=== PATIENT | male | born 1940 | race Caucasian/White ===

== ENCOUNTER 2018-04-06 18:05 | Inpatient (IN) | payer MEDICARE, OTHER ==
[~2018-04-06] VITALS: Ht 165.1 cm; Wt 90.8 kg
[~2018-04-06 18:05] MED LIST: ASCO500C16 PO; FERR325T24 PO; FOLI1TAB16 PO; LACT10SO7 PO; MULT-31 PO; POTA20TA83 PO; ZINC50TA65 PO
[2018-04-06] MEDS ORDERED: SPIR25TA4 PO (18:44)
[2018-04-06] MEDS ORDERED: FURO-152 PO (18:44)
[2018-04-06] MEDS ORDERED: TERA2CAP4 PO (18:44)
[2018-04-06 19:26] LABS: BASOPHILS % (AUTO) 0.5 % (0.0-2.0); EOSINOPHILS # (AUTO) 0.2 K/uL (0.0-0.7); EOSINOPHILS % (AUTO) 4.1 % (0.0-7.0); HEMATOCRIT 45.6 % (36.7-47.1); HEMOGLOBIN 15.6 g/dL (12.5-16.3); LYMPHOCYTES # (AUTO) 0.7 K/uL (20.0-40.0); LYMPHOCYTES % (AUTO) 11.6 % (20.5-51.5); MEAN CORPUSCULAR HEMOGLOBIN 36.3 uug (23.8-33.4); MEAN CORPUSCULAR HGB CONC 34 g/dL (32.5-36.3); MEAN CORPUSCULAR VOLUME 105.9 fL (73.0-96.2); MONOCYTES # (AUTO) 0.9 K/uL (2.0-10.0); MONOCYTES % (AUTO) 15.8 % (0.0-11.0); NEUTROPHILS # (AUTO) 4.1 K/uL (1.8-8.9); PLATELET COUNT (AUTO) 89 K/uL (152-348)
--- NOTE | 2018-04-06 19:30 | NUR ---
Pt provided urine sample, sent to lab.
[2018-04-06 19:40] LABS: CARBON DIOXIDE 26 mmol/L (21-32); CHLORIDE 105 mmol/L (98-107); CREATININE 1.2 mg/dL (0.6-1.3); GLUCOSE 126 mg/dL (74-106); POTASSIUM 3.7 mmol/L (3.5-5.1); UREA NITROGEN, BLOOD 16 mg/dL (7-18)
[2018-04-06 19:49] LABS: *BILIRUBIN,URIN NEGATIVE (NEGATIVE); *BLOOD, URINE NEGATIVE (NEGATIVE); *CLARITY,URINE CLEAR (CLEAR); *COLOR,URINE YELLOW (YELLOW); *KETONES,URINE NEGATIVE (NEGATIVE); *PROTEIN,URINE NEGATIVE (NEGATIVE); LEUKOCYTE ESTERASE ,URINE NEGATIVE (NEGATIVE); NITRITE, URINE NEGATIVE (NEGATIVE); PH,URINE 5.5 (5.0-8.0); UGLUCOSE NEGATIVE (NEGATIVE)
[2018-04-06 19:52] LABS: ALANINE AMINOTRANSFERASE 32 U/L (16-63); ALKALINE PHOSPHATASE 125 U/L (50-136); ASPARTATE AMINOTRANSFERASE 36 U/L (15-37); BILIRUBIN,DIRECT 0.5 mg/dL (0.0-0.2); BILIRUBIN,TOTAL 1.4 mg/dL (0.2-1.0); TOTAL PROTEIN, SERUM 7.4 g/dL (6.4-8.2)
[2018-04-06 20:05] LABS: SQUAMOUS EPITHELIAL CELL,UR FEW /HPF (NONE SEEN); WBC,URINE 0-3 /HPF (0-3)
[2018-04-06 20:52] LABS: BAND % (MANUAL) 4 % (0-10); EOSINOPHILS % (MANUAL) 2 % (0-8); LYMPHOCYTES % (MANUAL) 12 % (20-40); MONOCYTES % (MANUAL) 15 % (2-10); NEUTROPHILS % (MANUAL) 67 % (42-75)
--- NOTE | 2018-04-06 22:14 | NUR ---
Report given to Leila SUNSHINE Tele.
[2018-04-06 23:00] VITALS: BP 115/67
--- NOTE | 2018-04-06 23:05 | NUR ---
RECEIVED [facility] PATIENT FROM ER VIA W/C ACCOMPANIED BY THE SON. PATIENT ALERT AWAKE AND ORIENTED X 3. . HE IS RESTLESS AND GETTING UPSET FOR NOT LETTING HIM SMOKING. USED THE INTERVENTION OF DISTRACTION AND PATIENT OBEYED COMMANDS WITH HESITANCE. ALL NEEDS MET . WILL CONTUE TO MONITOR. SR WITH [facility] AND [facility] ON THE TELEMONITORING
[2018-04-06] MEDS ORDERED: LORAZEPAM 2 MG/1 ML VIAL IV PRN (23:15)
[2018-04-06] MEDS ORDERED: MORPHINE SULFATE 2 MG/1 ML DISP.SYRIN IV PRN (23:15)
[2018-04-07] VITALS: BP 121/62
[2018-04-07 04:00] VITALS: BP 121/61
--- NOTE | 2018-04-07 06:40 | NUR ---
PATIENT HAS ORDER FOR CT OF ABD AND PELVIS WITH CONTRAST. INFORMED THE PATIENT ABOUT THE CT SCAN.AND CONSENT SIGNED
[2018-04-07 06:51] LABS: BASOPHILS % (AUTO) 0.7 % (0.0-2.0); EOSINOPHILS # (AUTO) 0.3 K/uL (0.0-0.7); EOSINOPHILS % (AUTO) 5.1 % (0.0-7.0); HEMATOCRIT 43.9 % (36.7-47.1); HEMOGLOBIN 15.1 g/dL (12.5-16.3); LYMPHOCYTES # (AUTO) 0.9 K/uL (20.0-40.0); MEAN CORPUSCULAR HEMOGLOBIN 36.7 uug (23.8-33.4); MEAN CORPUSCULAR HGB CONC 34 g/dL (32.5-36.3); MEAN CORPUSCULAR VOLUME 106.7 fL (73.0-96.2); MONOCYTES # (AUTO) 0.8 K/uL (2.0-10.0); MONOCYTES % (AUTO) 14.2 % (0.0-11.0); NEUTROPHILS # (AUTO) 3.9 K/uL (1.8-8.9); PLATELET COUNT (AUTO) 84 K/uL (152-348); RED BLOOD CELL COUNT(AUTO) 4.12 MIL/uL (4.06-5.63)
[2018-04-07 07:15] LABS: ALANINE AMINOTRANSFERASE 29 U/L (16-63); ALKALINE PHOSPHATASE 102 U/L (50-136); ASPARTATE AMINOTRANSFERASE 38 U/L (15-37); BILIRUBIN,TOTAL 1.8 mg/dL (0.2-1.0); CARBON DIOXIDE 26 mmol/L (21-32); CHLORIDE 107 mmol/L (98-107); CHOLESTEROL 128 mg/dL (<200); CREATININE 1.1 mg/dL (0.6-1.3); GLUCOSE 118 mg/dL (74-106); HDL CHOLESTEROL 49 mg/dL (40-60); MAGNESIUM 1.8 mg/dL (1.8-2.4); PHOSPHOROUS 3.2 mg/dL (2.5-4.9); POTASSIUM 3.6 mmol/L (3.5-5.1); THYROID STIMULATING HORMONE 3.443 mIU/mL (0.358-3.740); TOTAL PROTEIN, SERUM 6.7 g/dL (6.4-8.2); TRIGLYCERIDES 42 MG/DL (30-150); UREA NITROGEN, BLOOD 15 mg/dL (7-18)
[2018-04-07] MEDS ORDERED: BARIUM SULFATE 450 ML ORAL.SUSP ONE (07:54)
[2018-04-07] MEDS ORDERED: IV NORMAL SALINE 100 ML ONE (07:54)
[2018-04-07] MEDS ORDERED: SWABABLE VALVE TRANSFER SET EA MC ONE (07:54)
[2018-04-07] MEDS ORDERED: IOHEXOL 300MG/ML 100 ML INFUS..BTL ONE (07:54)
--- NOTE | 2018-04-07 08:00 | NUR ---
PT WILL HAVE A CT WITH CONTRAST TODAY AT APPROXIMATELY 1000. PT STARTED ON ORAL PREP BARIUM SULFATE , TWO BOTTLES. PT INSTRUCTED TO DRINK SLOWLY. IS IS AGREEABLE AND UNDERSTANDS DIRECTIONS. CONTINUE TO MONITOR.
[2018-04-07] MEDS: FAMOTIDINE 20 MG TABLET PO SCH ×2 (08:34→08:40)
[2018-04-07] MEDS: ASPIRIN EC 81 MG TABLET.DR PO SCH ×2 (08:34→08:40)
--- NOTE | 2018-04-07 08:40 | NUR ---
PT REFUSED ASPIRIN AND PEPCID STATING, " I DON'T NEED ANY OF THAT" I AM FINE!!
[2018-04-07] MEDS ORDERED: MORPHINE SULFATE 4 MG/1 ML DISP.SYRIN IV PRN (09:00)
[2018-04-07 09:33] LABS: EOSINOPHILS % (MANUAL) 5 % (0-8); LYMPHOCYTES % (MANUAL) 15 % (20-40); MONOCYTES % (MANUAL) 15 % (2-10); NEUTROPHILS % (MANUAL) 65 % (42-75)
[2018-04-07 11:50] VITALS: BP 117/62
[2018-04-07 16:20] VITALS: BP 101/65
--- NOTE | 2018-04-07 18:49 | NUR ---
PT IS AGITATED AND HYPERVERBAL, REFUSING MEDICATIONS, AOX3, NO SIGNS OF DISTRESS NOTED. CONTINUE TO MONITOR PT.
[2018-04-07 19:00] VITALS: BP 123/65
--- NOTE | 2018-04-07 19:30 | NUR ---
PT IN ROOM ALERT AWAKE ORIENTED IN NO ACUTE DISTRESS. AMBULATES VIA W/C. PT NEEDS FREQUENT REMINDERS REGARDING PLAN OF CARE. PT STATES 'I'M OK' WITH PERIODS OF NONCOMPLIANCE. PT DOWNGRADED TO MEDSURG AT THIS TIME. DENIES ANY CHEST PAIN OR SOB. V/S ARE WNL. WILL CONTINUE TO MONITOR. CALL LIGHT WITHIN REACH.
[2018-04-07] MEDS: TERAZOSIN 2 MG CAPSULE PO SCH (20:31)
--- NOTE | 2018-04-07 21:32 | NUR ---
lab results reported preliminary blood culture Gram positive coccie with clusters seen on gram stain. Dr Schroeder made aware. Spoke with Janet from lab. Noted and carried out.
[2018-04-07] MEDS ORDERED: VANCOMYCIN IV 1 G in PREMIXED 0 EACH IV ONE (22:30)
--- NOTE | 2018-04-07 22:57 | NUR ---
DR ROQUE AWARE OF PT REFUSING VANCOMYCIN TONIGHT. PT STATED "I DON'T WANT IT, I'M GOING HOME TOMORROW." AWAITING PSYCH CONSULT FOR TOMORROW PER MHU. WILL CONTINUE TO MONITOR. NOTED AND CARRIED OUT.
[2018-04-08 04:00] VITALS: BP 118/64
--- NOTE | 2018-04-08 06:07 | NUR ---
PT IN ROOM ALERT AWAKE IN NO DISTRESS. PT NON COMPLIANT AND STATES HE DOES NOT WANT LABS DRAWN THIS AM. REMINDED PT SAFETY MEASURES AND TO REQUEST FOR ASSISTANCE WHEN NEEDED. PT OFFERED TO ASSIST WITH HYGIENE. V/S ARE WNL. W/C AT BEDSIDE. CALL LIGHT PLACED WITHIN REACH. DENIES ANY PAIN OR SOB. WILL CONTINUE TO MONITOR.
--- NOTE | 2018-04-08 07:45 | NUR ---
RECEIVED PATIENT IN BED ALL COVERED UP OPENS EYES WHEN NAME IS CALLED BUT STATED TO LEAVE HIM ALONE BECAUSE HE NEEDED TO SLEEP MORE THERE WAS NO SHORTNESS OF BREATH OR S/S OF PAIN FACIAL GRIMACING OR PAIN AT THIS TIME WILL CONTINUE TO OBSERVE.
[2018-04-08] MEDS: ASPIRIN EC 81 MG TABLET.DR PO SCH (08:29)
--- NOTE | 2018-04-08 08:29 | NUR ---
PATIENT WAS BROUGHT BACK TO THE SECOND FLOOR BY THE GUEST RELATION OFFICER HE APPARENTLY PLACED HIMSELF ON THE W/CHAIR AND WAS SITTING IN THE LOBBY AT THIS TIME HE IS CONFUSED AND UNAWARE OF WHY HE WAS DOWN STAIRS HE IS WET FROM URINE AND UNCOOPERATIVE WITH THE NURSE TO CHANGE AND BATHE HIM.TOOK QUITE SOME TIME TO CONVINCE HIM THAT HE NEEDS A BATH AND CHANGING.PATIENT INSTRUCTED THAT HE WAS NOT ALLOWED TO GO DOWN STAIRS UNASSISTED AND HE EXPRESSED UNDERSTANDING AND WILL CONTINUE TO OBSERVE PATIENT.PATIENT NEEDS A PSYCH EVAL TODAY.
[2018-04-08] MEDS: FAMOTIDINE 20 MG TABLET PO SCH (08:35)
[2018-04-08 11:50] VITALS: BP 103/56
--- NOTE | 2018-04-08 12:30 | NUR ---
PATIENT SEEN AND EXAMINED BY DR FRANCIS WITH NEW ORDERS AND NOTED.
[2018-04-08] MEDS: risperiDONE 0.25 MG TABLET PO SCH ×2 (12:43→16:23)
[2018-04-08 15:18] VITALS: BP 109/54
--- NOTE | 2018-04-08 18:00 | NUR ---
IN AND OUT OF THE W/CHAIR PROPELLING SELF REMAINS CONFUSED BUT COMPLIANT WITH HIS ORAL MEDICATIONS AT THIS TIME.REMAIN INCONTINENT OF BLADDER WITH [employer] MADE COMFORTABLE AND WILL CONTINUE TO OBSERVE.
[2018-04-08 19:00] VITALS: BP 105/50
--- NOTE | 2018-04-08 19:30 | NUR ---
PT IN ROOM ALERT AWAKE SITTING IN WHEELCHAIR IN NO ACUTE DISTRESS. REMINDED PT TO REMAIN ON THE FLOOR AND AVOID WANDERING. PT NEEDS FREQUENT REMINDERS REGARDING PLAN OF CARE. WILL CONTINUE TO MONITOR. PT OFFERED TO HAVE ANOTHER ROOM D/T MALFUNCTION OF CALL LIGHT. PT STATED "I'M LEAVING TOMORROW ANYWAYS".
[2018-04-08] MEDS: TERAZOSIN 2 MG CAPSULE PO SCH (20:05)
--- NOTE | 2018-04-08 21:37 | NUR ---
PT REMOVED IV SITE TO LEFT AC. REFUSES TO HAVE ANOTHER ONE. DR ROQUE IS AWARE.
[2018-04-09 04:00] VITALS: BP 118/59
--- NOTE | 2018-04-09 05:36 | NUR ---
PT ABLE TO SLEEP WITHOUT DIFFICULTY. NO EPISODES OF AGITATION OR INCREASED CONFUSION. PT REMINDED TO ASK FOR ASSTANCE REGARDING HELP WITH BATHROOM PRIVILEGES FOR HYGIENE PURPOSES. V/S ARE WNL. WILL CONTINUE TO MONITOR. DENIES ANY PAIN OR SOB.
--- NOTE | 2018-04-09 08:30 | NUR ---
RECEIVED PATIENT IN BED AWAKE AND ALERT TO SELF COOPERATIVE AND COMPLIANT WITH MEDICATIONS INCONTINENT CARE GIVEN SITTING UP ON THE W/CHAIR AND FEEDING SELF AT THIS TIME WILL CONTINUE TO OBSERVE.
[2018-04-09] MEDS: FAMOTIDINE 20 MG TABLET PO SCH (08:56)
[2018-04-09] MEDS: ASPIRIN EC 81 MG TABLET.DR PO SCH (08:56)
[2018-04-09] MEDS: risperiDONE 0.25 MG TABLET PO SCH ×2 (08:56→16:45)
[2018-04-09 12:00] VITALS: BP 100/47
--- NOTE | 2018-04-09 13:38 | NUR ---
THE PLAN IS FOR PATIENT TO BE SEEN BY CRISIS TEAM TODAY FOR EVALUATION.PER THE DISCHARGE MANAGER ARCHITECTURE PATIENTS SON JEANNE IS AWARE AND AGREES WITH THIS PLAN.
[2018-04-09 15:51] VITALS: BP 120/59
--- NOTE | 2018-04-09 16:47 | NUR ---
NEW ORDER TO DISCHARGE PATIENT TO MENTAL HEALTH STATUS NOTED AT THIS TIME AWAITING FOR THE CRISIS TEAM TO EVALUATE PATIENT PRIOR TO DISCHARGE
--- NOTE | 2018-04-09 17:32 | NUR ---
SITTING UP IN THE CHAIR COMPLIANT WITH MEDICATIONS AT THIS TIME D/C PLANNING WILL BE CONVERTED TO PSYCH STATUS AFTER BEING SEEN BY THE CRISIS TEAM PER DR ROQUE.
[2018-04-09] MEDS ORDERED: RISP0.253 PO ×2 (17:38→20:21)
[2018-04-09] MEDS ORDERED: FAMO20TA8 PO ×2 (17:38→20:21)
[2018-04-09] MEDS ORDERED: ASPI-618 PO (17:38)
--- NOTE | 2018-04-09 18:22 | NUR ---
PATIENT SEEN AND EXAMINED BY DR JETER AWARE OF THE MOST RECENT TROPONIN LEVEL OF 0.075 STATED ITS OKAY PATIENT IS CLEARED FOR MENTAL HEALTH STATUS AT THIS TIME
--- NOTE | 2018-04-09 18:45 | NUR ---
PATIENT IS PLACED ON HOLD FOR 72 HOURS AND WILL BE CONVERTED TO MENTAL HEALTH STATUS
--- NOTE | 2018-04-09 18:47 | NUR ---
PATIENT IS UNABLE TO SIGN OR UNDERSTAND THE DISCHARGE PAPER WORK AT THIS TIME.BUT INSTRUCTIONS WAS GIVEN AND PROTOCOL FOLLOWED PER THE GRAVURE PRESS SET UP OPERATOR AND THE DIGITAL ACCOUNT DIRECTOR PATIENTS VESNA ANGEL IS AWARE OF THE DISCHARGE FROM THE MEDICAL TO THE MHU STATUS.
[2018-04-09] MEDS ORDERED: ASPI81TA31 PO (20:21)
== END 2018-04-09 18:45 | DRG 441 ==
LOC: ER 18:07 → TELE 22:26 → MED 04-07 19:07
PROVIDERS: ADMIT Internal Medicine; ATTEND Internal Medicine
DX: K72.90 Hepatic failure, unspecified without coma (principal); I21.4 Non-ST elevation (NSTEMI) myocardial infarction; D68.59 Other primary thrombophilia; D68.4 Acquired coagulation factor deficiency; K70.31 Alcoholic cirrhosis of liver with ascites; F10.20 Alcohol dependence, uncomplicated; Y90.9 Presence of alcohol in blood, level not specified; N40.1 Benign prostatic hyperplasia with lower urinary tract symptoms; N39.498 Other specified urinary incontinence; H40.9 Unspecified glaucoma; I27.20 Pulmonary hypertension, unspecified; Z91.14 Patient's other noncompliance with medication regimen; I11.0 Hypertensive heart disease with heart failure; I50.9 Heart failure, unspecified; J44.9 Chronic obstructive pulmonary disease, unspecified; D69.6 Thrombocytopenia, unspecified; Z99.3 Dependence on wheelchair; Z98.42 Cataract extraction status, left eye; Z98.41 Cataract extraction status, right eye; Z79.899 Other long term (current) drug therapy; Z91.010 Allergy to peanuts; K80.20 Calculus of gallbladder without cholecystitis without obstruction; F29 Unspecified psychosis not due to a substance or known physiological condition
CPT/HCPCS: 36415; 70030-TC; 71045; 83605; 83735; 84100; 84153; 84443; 85025; 85730; 87040; 87086; 93005; A4663; J3370; J3490; Q9951; Q9967

== ENCOUNTER 2018-04-09 19:40 | Inpatient (IN) | payer MEDICARE, OTHER ==
[~2018-04-09] VITALS: Ht 165.1 cm; Wt 90.7 kg
[~2018-04-09 19:40] MED LIST changes: -ASCO500C16 PO; +ASPI-618 PO; +FAMO20TA8 PO; -FERR325T24 PO; +FURO-152 PO; -LACT10SO7 PO; -POTA20TA83 PO; +RISP0.253 PO; +SPIR25TA4 PO; +TERA2CAP4 PO; -ZINC50TA65 PO
[2018-04-09 20:00] VITALS: BP 100/55
--- NOTE | 2018-04-09 20:00 | NUR ---
RECEIVED PATIENT MARINA-PSYCH OVERFLOW. PATIENT IS A/O X2. CONFUSED AND VERY FORGETFUL. NEEDS FREQUENT REDIRECTION AND EASILY AGITATED WITH STAFF. PATIENT IS UPSET BECAUSE THERE IS A 1:1 SITTER AT BEDSIDE AND PATIENT DOES NOT WANT ANYONE AROUND. PATIENT EXPLAINED THE NEED AND PROTOCOL FOR SITTER. VERBALIZES UNDERSTANDING, BUT EASILY FORGETS AND THEN NEEDS REINFORCEMENT. PATIENT DENIES PAIN OR DISCOMFORT. NO FACIAL GRIMACE NOTED. VSS. 1:1 SITTER AT BEDSIDE FOR SAFETY. PATIENT IS AT BEDSIDE SITTING IN W/C. UNABLE TO AMBULATE. W/C BOUND ONLY. PROVIDED SAFE AND THERAPEUTIC ENVIRONMENT. CALL LIGHT IN REACH. ALL NEEDS ATTENDED. WILL CONTINUE TO MONITOR AND ASSESS.
[2018-04-09] MEDS ORDERED: FAMO20TA8 PO (20:21)
[2018-04-09] MEDS ORDERED: ASPI81TA31 PO (20:21)
[2018-04-09] MEDS ORDERED: RISP0.253 PO (20:21)
[2018-04-09] MEDS ORDERED: MAG HYDROX/AL HYDROX/SIMETH 30 ML LIQUID UDC PO PRN (20:45)
[2018-04-09] MEDS ORDERED: CLONAZEPAM 0.5 MG TABLET PO PRN (20:45)
[2018-04-09] MEDS ORDERED: MAGNESIUM HYDROXIDE 30 ML LIQUID UDC PO PRN (20:45)
[2018-04-09] MEDS ORDERED: TEMAZEPAM 7.5 MG CAPSULE PO PRN (20:45)
[2018-04-09] MEDS ORDERED: ACETAMINOPHEN 325 MG TABLET PO PRN (20:45)
--- NOTE | 2018-04-09 21:00 | NUR ---
SKIN ASSESSMENT DONE. SKIN INTACT. PATIENT HAS RED, DRY AND VERY HARD BLACK SKIN NOTED TO BILATERAL LOWER EXTREMITIES. INFORMED PATIENT THAT PICTURES NEEDED TO BE TAKEN PROTOCOL. PATIENT BECAME EASILY AGITATED AND REFUSING FOR PICTURES TO BE TAKEN. NOTIFIED MENTAL HEALTH HUMAN SERVICES INSTRUCTOR. WILL CONTINUE TO MONITOR AND ASSESS.
--- NOTE | 2018-04-09 21:30 | NUR ---
PATIENT REFUSED FOR MRSA SWAB TO BE DONE. TIN DIPPER NOTIFIED.
[2018-04-09] MEDS ORDERED: risperiDONE 0.25 MG TABLET PO SCH (22:15)
--- NOTE | 2018-04-09 23:00 | NUR ---
PATIENT ASLEEP IN BED. SITTER AT BEDSIDE. BED ALARM ON. ALL NEEDS ATTENDED. WILL CONTINUE TO MONITOR AND ASSESS.
--- NOTE | 2018-04-10 06:09 | NUR ---
PATIENT ASLEEP IN BED WITH SITTER AT BEDSIDE. SLEPT WELL THROUGHOUT THE NIGHT. SAFETY MEASURES MAINTAINED. BED ALARM ON. ALL NEEDS ATTENDED. WILL CONTINUE TO MONITOR.
--- NOTE | 2018-04-10 06:35 | NUR ---
PATIENT SLEPT 6 HOURS AND 15 MINUTES. ALL NEEDS ATTENDED.
[2018-04-10 08:00] VITALS: BP 115/64
[2018-04-10] MEDS: FOLIC ACID 1 MG TABLET PO SCH (08:15)
[2018-04-10] MEDS: FAMOTIDINE 20 MG TABLET PO SCH (08:15)
[2018-04-10] MEDS: SPIRONOLACTONE 25 MG TABLET PO SCH (08:15)
[2018-04-10] MEDS: MULTIVIT, IRON, MIN NO. 8, FA TABLET PO SCH (08:15)
--- NOTE | 2018-04-10 08:15 | NUR ---
PATIENT ASSISTED UP ON THE CHAIR FOR HIS BREAKFAST FED SELF WITH GOOD APPETITE MADE COMFORTABLE REMAIN ON ONE ON ONE OBSERVATION FOR SAFETY MADE COMFORTABLE AND WILL CONTINUE TO OBSERVE.
[2018-04-10] MEDS: FUROSEMIDE 20 MG TABLET PO SCH (08:16)
[2018-04-10] MEDS: ASPIRIN EC 81 MG TABLET.DR PO SCH (08:16)
[2018-04-10] MEDS ORDERED: FAMOTIDINE 20 MG TABLET PO SCH (09:00)
[2018-04-10] MEDS ORDERED: ASPIRIN 81 MG TAB.CHEW PO SCH (09:00)
[2018-04-10] MEDS ORDERED: risperiDONE 0.25 MG TABLET PO SCH (09:00)
[2018-04-10 11:55] VITALS: BP 120/67
[2018-04-10 15:36] VITALS: BP 114/62
--- NOTE | 2018-04-10 17:09 | NUR ---
PATIENT TAKEN TO MENTAL HEALTH BY W/CHAIR AND SHOWERED AND BACK TO HIS ROOM IN SATISFACTORY CONDITION. COMPLIANT AT THIS TIME.
--- NOTE | 2018-04-10 19:06 | NUR ---
UP ON THE W/CHAIR CALM AND COOPERATIVE AT THIS TIME.
[2018-04-10 19:20] VITALS: BP 112/53
--- NOTE | 2018-04-10 19:20 | NUR ---
RECEIVED PT SITTING IN THE WHEELCHAIR. ALERT TO SELF ONLY. WITH CONFUSION AND DISORIENTATION. NO BEHAVIORAL ISSUES NOTED AT THIS TIME. SITTER ON SITE. IN NO ACUTE DISTRESS. NO SIGNS AND SYMPTOMS OF PAIN OR SOB. SAFETY MEASURE INITIATED.
[2018-04-10] MEDS: TERAZOSIN 2 MG CAPSULE PO SCH (20:14)
--- NOTE | 2018-04-11 05:56 | NUR ---
ALERT TO SELF ONLY. WITH CONFUSION AND DISORIENTATION. NO INAPPROPRIATE OR UNSAFE BEHAVIOR NOTED. SITTER REMAINS ON SITE. IN NO ACUTE DISTRESS. NO SIGNS AND SYMPTOMS OF PAIN OR SOB. SAFETY MEASURE MAINTAINED CALL MOSER WITHIN REACH.
[2018-04-11 06:04] VITALS: BP 103/54
[2018-04-11 08:00] VITALS: BP 92/46
[2018-04-11] MEDS: MULTIVIT, IRON, MIN NO. 8, FA TABLET PO SCH (09:06)
[2018-04-11] MEDS: FAMOTIDINE 20 MG TABLET PO SCH (09:06)
[2018-04-11] MEDS: FOLIC ACID 1 MG TABLET PO SCH (09:06)
[2018-04-11] MEDS: ASPIRIN EC 81 MG TABLET.DR PO SCH (09:06)
--- NOTE | 2018-04-11 10:00 | NUR ---
Pt's BP 98/54 HR 94. Pt with due meds of Aldactone 50mg QD and Lasix 20mg QD for hx of Alcoholic Liver Cirrhosis, Ascites, BPH. Followed up with Dr. Hilliard if medications needs to be held secondary to low BP. Per Dr. Hilliard, administer medications as ordered.
[2018-04-11] MEDS: FUROSEMIDE 20 MG TABLET PO SCH (10:06)
[2018-04-11] MEDS: SPIRONOLACTONE 25 MG TABLET PO SCH (10:06)
[2018-04-11 13:10] VITALS: BP 101/55
--- NOTE | 2018-04-11 16:15 | NUR ---
Pt will be transferred to MHU Room 139A. Full SBAR report given to JONG Carl. Pt transferred via w/c accompanied by x1 staff to MHU with all his belongings and medical records. Verbalized understanding. Son aware of transfer. Pt was up in w/c most of the day watching tv, interacting with staff and other pts. Showered and performed self-care. Compliant with due medications. Endorsed to MHU.
--- NOTE | 2018-04-11 17:58 | NUR ---
GPS.RN- contacted Dr Siegel, no new orders for Psych meds, consent for Risperdal today in chart. orders received for Risperdal 0.25mg by mouth BID, orders read back, consent verified faxed to Pharmacy
[2018-04-11] MEDS: risperiDONE 0.25 MG TABLET PO SCH (18:33)
[2018-04-11 20:11] VITALS: BP 120/58
[2018-04-11] MEDS: TERAZOSIN 2 MG CAPSULE PO SCH (21:22)
[2018-04-11] MEDS ORDERED: TEMAZEPAM 7.5 MG CAPSULE ONE (23:46)
[2018-04-12 07:54] VITALS: BP 99/66
--- NOTE | 2018-04-12 08:18 | NUR ---
UR Note: On 04/11 KIARA spoke with Xu at [facility] [[phone]] regarding patient's case. Xu stated a [id number] is needed for authorization. Per Xu, a case specialist from [facility] will be calling KIARA within 48hours to schedule [id number]. KIARA will continue to follow up.
[2018-04-12] MEDS: FAMOTIDINE 20 MG TABLET PO SCH (09:04)
[2018-04-12] MEDS: FOLIC ACID 1 MG TABLET PO SCH (09:04)
[2018-04-12] MEDS: risperiDONE 0.25 MG TABLET PO SCH (09:04)
[2018-04-12] MEDS: FUROSEMIDE 20 MG TABLET PO SCH (09:04)
[2018-04-12] MEDS: ASPIRIN EC 81 MG TABLET.DR PO SCH (09:04)
[2018-04-12] MEDS: MULTIVIT, IRON, MIN NO. 8, FA TABLET PO SCH (09:04)
[2018-04-12] MEDS: SPIRONOLACTONE 25 MG TABLET PO SCH (09:05)
--- NOTE | 2018-04-12 10:43 | NUR ---
DC Note: Patient will be discharged to [facility] [[address] [place] [address]; ] via private transportation. KIARA spoke with Joana at [facility] to confirm discharge. Patient's Maude [[phone]] stated she will pickling operator patient between 2pm and 3pm. Patient will follow up with Dr. Lonnie Schroeder (Screening Tech) at the facility. Patient was provided referrals for outpatient psychiatrists including: Dr. Sigeel [[phone]], Dr. Joy [[phone]], and Dr. So [[phone]]. Patient was provided with additional outpatient mental health resources to [facility] , [facility] , and the National Suicide Prevention Lifeline . Patient was provided a brief substance abuse intervention for alcohol use and provided substance abuse referrals for [facility] [ ], [facility] [ ], and [facility] [ ]. Patient was provided smoking cessation referrals for [employer] and [employer] [phone].
--- NOTE | 2018-04-12 13:42 | NUR ---
[address] [facility] spoke with Judith the mediation nurse informed regarding patient will be discharged back to their faciltiy today. Patient will be picked up by and son via private car. Also, informed regarding medications to continue upon discharged from hospital.[id number] Patient picked up by , Maude and sonand transported patient to facility in stable condition, denies SI/HI, no delusion/ no hallucination .
[2018-04-12] MEDS ORDERED: risperiDONE 0.25 MG TABLET PO SCH (17:00)
== END 2018-04-12 13:30 | DRG 885 ==
LOC: GPSOV 19:40 → UNDODISIN 04-11 16:20 → GPS 04-11 16:58
PROVIDERS: ADMIT Psychiatry & Neurology Psychiatry; ATTEND Nurse Practitioner Acute Care
DX: F29 Unspecified psychosis not due to a substance or known physiological condition (principal); K76.6 Portal hypertension; K70.31 Alcoholic cirrhosis of liver with ascites; F10.20 Alcohol dependence, uncomplicated; Y90.9 Presence of alcohol in blood, level not specified; N40.0 Benign prostatic hyperplasia without lower urinary tract symptoms; I27.20 Pulmonary hypertension, unspecified; Z98.49 Cataract extraction status, unspecified eye; F17.210 Nicotine dependence, cigarettes, uncomplicated
CPT/HCPCS: 36415

== ENCOUNTER 2018-08-16 17:00 | Inpatient (IN) | payer MEDICARE, OTHER ==
[~2018-08-16] VITALS: Ht 177.8 cm; Wt 88.9 kg
[2018-08-16] VITALS (9 sets, daily range): BP systolic 82–116; BP diastolic 43–57
[~2018-08-16 17:00] MED LIST changes: +ASPI81TA31 PO; -RISP0.253 PO; -SPIR25TA4 PO; +SPIR25TA6 PO
[2018-08-16] MEDS ORDERED: IV NORMAL SALINE 1000 ML BAG IV ONE ×2 (17:30→18:00)
[2018-08-16 17:39] LABS: BASOPHILS % (AUTO) 0.1 % (0.0-2.0); EOSINOPHILS % (AUTO) 0.1 % (0.0-7.0); HEMATOCRIT 38.5 % (36.7-47.1); HEMOGLOBIN 13.1 g/dL (12.5-16.3); LYMPHOCYTES # (AUTO) 0.1 K/uL (20.0-40.0); LYMPHOCYTES % (AUTO) 0.8 % (20.5-51.5); MEAN CORPUSCULAR HEMOGLOBIN 37.2 uug (23.8-33.4); MEAN CORPUSCULAR HGB CONC 34 g/dL (32.5-36.3); MEAN CORPUSCULAR VOLUME 109.5 fL (73.0-96.2); MONOCYTES # (AUTO) 0.4 K/uL (2.0-10.0); MONOCYTES % (AUTO) 2.1 % (0.0-11.0); NEUTROPHILS # (AUTO) 17.7 K/uL (1.8-8.9); NEUTROPHILS % (AUTO) 96.9 % (38.5-71.5); PLATELET COUNT (AUTO) 249 K/uL (152-348); RED BLOOD CELL COUNT(AUTO) 3.52 MIL/uL (4.06-5.63); WHITE BLOOD COUNT (AUTO) 18.3 K/uL (3.6-10.2)
[2018-08-16] MEDS ORDERED: MAGN400O6 PO (17:39)
[2018-08-16] MEDS ORDERED: ACET-2154 PO (17:39)
[2018-08-16] MEDS ORDERED: TAMS0.4C34 PO (17:39)
[2018-08-16 17:45] LABS: CARBON DIOXIDE 17 mmol/L (21-32); CHLORIDE 96 mmol/L (98-107); CREATININE 2.2 mg/dL (0.6-1.3); GLUCOSE 219 mg/dL (74-106); POTASSIUM 4.2 mmol/L (3.5-5.1); UREA NITROGEN, BLOOD 17 mg/dL (7-18)
[2018-08-16 17:51] LABS: ALANINE AMINOTRANSFERASE 24 U/L (16-63); ALKALINE PHOSPHATASE 129 U/L (50-136); ASPARTATE AMINOTRANSFERASE 44 U/L (15-37); BILIRUBIN,TOTAL 2.1 mg/dL (0.2-1.0); TOTAL PROTEIN, SERUM 6.8 g/dL (6.4-8.2)
[2018-08-16] MEDS ORDERED: PIPERACILLIN SODIUM/TAZOBACTAM 3.375 G in IV DEXTROSE 5% 50 ML IV ONE (18:00)
[2018-08-16] MEDS ORDERED: VANCOMYCIN IV 1,000 MG in IV DEXTROSE 5% 250 ML IV ONE (18:00)
[2018-08-16 18:06] LABS: NEUTROPHILS % (MANUAL) 72 % (42-75)
[2018-08-16] MEDS ORDERED: PIPERACILLIN SODIUM/TAZO 3.375 GM VIAL ONE (18:06)
[2018-08-16 18:07] LABS: BAND % (MANUAL) 25 % (0-10); LYMPHOCYTES % (MANUAL) 1 % (20-40); MONOCYTES % (MANUAL) 2 % (2-10)
[2018-08-16] MEDS ORDERED: VANCOMYCIN IV 200 ML ONE (18:39)
[2018-08-16] MEDS ORDERED: IV NORMAL SALINE 1000 ML BAG IV PRN (20:30)
[2018-08-16] MEDS ORDERED: DOSING BY PHARMACY-MD TO SPECIFY MED/ROUTE XX PRN (20:30)
[2018-08-16] MEDS: IV NS 1000 ML 1,000 ML IV PRN (23:07)
[2018-08-17] VITALS (31 sets, daily range): BP systolic 80–114; BP diastolic 42–64
[2018-08-17] MEDS: PIPERACILLIN/TAZOBACTAM/D5W 3.375 G in PREMIXED 1 EACH IV SCH ×3 (01:09→17:40)
[2018-08-17] MEDS: IV NORMAL SALINE 250 ML IV PRN ×2 (01:09→13:39)
[2018-08-17 05:51] LABS: BASOPHILS % (AUTO) 0.1 % (0.0-2.0); HEMATOCRIT 35.8 % (36.7-47.1); HEMOGLOBIN 12.4 g/dL (12.5-16.3); LYMPHOCYTES # (AUTO) 0.3 K/uL (20.0-40.0); MEAN CORPUSCULAR HEMOGLOBIN 37.2 uug (23.8-33.4); MEAN CORPUSCULAR HGB CONC 35 g/dL (32.5-36.3); MEAN CORPUSCULAR VOLUME 107.2 fL (73.0-96.2); MONOCYTES # (AUTO) 0.9 K/uL (2.0-10.0); MONOCYTES % (AUTO) 5.4 % (0.0-11.0); NEUTROPHILS # (AUTO) 15.8 K/uL (1.8-8.9); NEUTROPHILS % (AUTO) 92.5 % (38.5-71.5); PLATELET COUNT (AUTO) 209 K/uL (152-348); RED BLOOD CELL COUNT(AUTO) 3.34 MIL/uL (4.06-5.63); WHITE BLOOD COUNT (AUTO) 17.1 K/uL (3.6-10.2)
[2018-08-17] MEDS ORDERED: VANCOMYCIN IV 2,000 MG in IV DEXTROSE 5% 500 ML IV ONE (06:00)
[2018-08-17 06:14] LABS: ALANINE AMINOTRANSFERASE 23 U/L (16-63); ALKALINE PHOSPHATASE 95 U/L (50-136); ASPARTATE AMINOTRANSFERASE 35 U/L (15-37); BILIRUBIN,DIRECT 1.2 mg/dL (0.0-0.2); CARBON DIOXIDE 22 mmol/L (21-32); CHLORIDE 103 mmol/L (98-107); CREATININE 1.6 mg/dL (0.6-1.3); GLUCOSE 136 mg/dL (74-106); MAGNESIUM 1.9 mg/dL (1.8-2.4); PHOSPHOROUS 4.3 mg/dL (2.5-4.9); POTASSIUM 4.6 mmol/L (3.5-5.1); TOTAL PROTEIN, SERUM 5.4 g/dL (6.4-8.2); UREA NITROGEN, BLOOD 22 mg/dL (7-18)
[2018-08-17] MEDS ORDERED: MAGNESIUM HYDROXIDE 30 ML LIQUID UDC PO PRN (07:30)
[2018-08-17] MEDS ORDERED: ACETAMINOPHEN 325 MG TABLET PO PRN (07:30)
[2018-08-17] MEDS ORDERED: FAMOTIDINE 20 MG TABLET PO SCH (09:00)
[2018-08-17] MEDS: PANTOPRAZOLE SODIUM 40 MG VIAL IV SCH (09:28)
[2018-08-17] MEDS: IV NS 1000 ML 1,000 ML IV PRN ×2 (09:31→22:25)
[2018-08-17] MEDS: FOLIC ACID 1 MG TABLET PO SCH (09:37)
[2018-08-17] MEDS: MULTIVIT, IRON, MIN NO. 8, FA TABLET PO SCH (09:37)
[2018-08-17] MEDS: SPIRONOLACTONE 25 MG TABLET PO SCH (09:37)
[2018-08-17] MEDS: FUROSEMIDE 20 MG TABLET PO SCH (09:37)
[2018-08-17] MEDS: ASPIRIN 81 MG TAB.CHEW PO SCH (09:38)
[2018-08-17] MEDS ORDERED: ALBUMIN HUMAN 25% 50 ML IV ONE ×2 (11:15→13:51)
[2018-08-17] MEDS ORDERED: IV NS 1000 ML 1,000 ML IV ONE (11:45)
[2018-08-17] MEDS ORDERED: Z GUARD REMEDY PASTE 57 GM TUBE TOP PRN (13:15)
[2018-08-17] MEDS ORDERED: IPRATROPIUM BROMIDE 0.5 MG/2.5 ML NEBU NEB PRN (13:30)
[2018-08-17] MEDS ORDERED: ALBUTEROL SULFATE 2.5 MG/3 ML NEBU NEB PRN (13:30)
[2018-08-17] MEDS ORDERED: NOREPINEPHRINE BITARTRATE 8 MG in IV DEXTROSE 5% 500 ML IV PRN (19:45)
[2018-08-17] MEDS ORDERED: IV NORMAL SALINE 1000 ML BAG IV SCH (20:30)
[2018-08-17] MEDS: TAMSULOSIN HCL 0.4 MG CAP.SR.24H PO SCH (20:52)
[2018-08-17] MEDS: Z GUARD REMEDY PASTE 57 GM TUBE TOP SCH (20:53)
[2018-08-17] MEDS ORDERED: TERAZOSIN 2 MG CAPSULE PO SCH (21:00)
[2018-08-18] VITALS (10 sets, daily range): BP systolic 90–117; BP diastolic 47–72
[2018-08-18] MEDS: PIPERACILLIN/TAZOBACTAM/D5W 3.375 G in PREMIXED 1 EACH IV SCH ×3 (01:23→17:17)
[2018-08-18 06:07] LABS: BASOPHILS # (AUTO) 0.1 K/uL (0.0-8.0); BASOPHILS % (AUTO) 0.3 % (0.0-2.0); EOSINOPHILS % (AUTO) 0.2 % (0.0-7.0); HEMATOCRIT 36.5 % (36.7-47.1); HEMOGLOBIN 12.6 g/dL (12.5-16.3); LYMPHOCYTES # (AUTO) 0.4 K/uL (20.0-40.0); LYMPHOCYTES % (AUTO) 2.1 % (20.5-51.5); MEAN CORPUSCULAR HEMOGLOBIN 37.3 uug (23.8-33.4); MEAN CORPUSCULAR HGB CONC 35 g/dL (32.5-36.3); MEAN CORPUSCULAR VOLUME 107.7 fL (73.0-96.2); MONOCYTES # (AUTO) 1.1 K/uL (2.0-10.0); MONOCYTES % (AUTO) 5.7 % (0.0-11.0); NEUTROPHILS # (AUTO) 17.7 K/uL (1.8-8.9); NEUTROPHILS % (AUTO) 91.7 % (38.5-71.5); PLATELET COUNT (AUTO) 202 K/uL (152-348); RED BLOOD CELL COUNT(AUTO) 3.39 MIL/uL (4.06-5.63); WHITE BLOOD COUNT (AUTO) 19.2 K/uL (3.6-10.2)
[2018-08-18 06:30] LABS: IRON, SERUM 28 ug/dL (50-175)
[2018-08-18 07:20] LABS: ALANINE AMINOTRANSFERASE 20 U/L (16-63); ALKALINE PHOSPHATASE 93 U/L (50-136); ASPARTATE AMINOTRANSFERASE 34 U/L (15-37); BILIRUBIN,TOTAL 1.6 mg/dL (0.2-1.0); CARBON DIOXIDE 23 mmol/L (21-32); CHLORIDE 104 mmol/L (98-107); CREATININE 1.5 mg/dL (0.6-1.3); FERRITIN 1349 ng/mL (26-388); GLUCOSE 116 mg/dL (74-106); MAGNESIUM 1.8 mg/dL (1.8-2.4); PHOSPHOROUS 3.7 mg/dL (2.5-4.9); POTASSIUM 3.9 mmol/L (3.5-5.1); TOTAL PROTEIN, SERUM 5.5 g/dL (6.4-8.2); UREA NITROGEN, BLOOD 26 mg/dL (7-18)
[2018-08-18] MEDS: ASPIRIN 81 MG TAB.CHEW PO SCH (08:52)
[2018-08-18] MEDS: PANTOPRAZOLE SODIUM 40 MG VIAL IV SCH (08:52)
[2018-08-18] MEDS: FOLIC ACID 1 MG TABLET PO SCH (08:52)
[2018-08-18] MEDS: MULTIVIT, IRON, MIN NO. 8, FA TABLET PO SCH (08:52)
[2018-08-18] MEDS: FUROSEMIDE 20 MG TABLET PO SCH (08:53)
[2018-08-18] MEDS: Z GUARD REMEDY PASTE 57 GM TUBE TOP SCH ×2 (08:53→21:09)
[2018-08-18] MEDS: SPIRONOLACTONE 25 MG TABLET PO SCH (08:53)
[2018-08-18] MEDS ORDERED: VANCOMYCIN IV 1,250 MG in IV DEXTROSE 5% 500 ML IV ONE (09:00)
[2018-08-18] MEDS: IV NS 1000 ML 1,000 ML IV PRN (09:06)
[2018-08-18] MEDS ORDERED: MEROPENEM 500 MG in IV NORMAL SALINE 50 ML IV SCH (20:00)
[2018-08-18] MEDS: MEROPENEM 0.5 G in IV NORMAL SALINE 50 ML IV SCH (21:09)
[2018-08-18] MEDS: TAMSULOSIN HCL 0.4 MG CAP.SR.24H PO SCH (21:12)
[2018-08-19] VITALS: BP 92/47
[2018-08-19 04:00] VITALS: BP 90/50
[2018-08-19] MEDS: PANTOPRAZOLE SODIUM 40 MG TABLET.DR PO SCH (06:06)
[2018-08-19 06:15] LABS: BASOPHILS # (AUTO) 0.1 K/uL (0.0-8.0); BASOPHILS % (AUTO) 0.5 % (0.0-2.0); HEMATOCRIT 37.9 % (36.7-47.1); HEMOGLOBIN 12.8 g/dL (12.5-16.3); LYMPHOCYTES # (AUTO) 0.3 K/uL (20.0-40.0); LYMPHOCYTES % (AUTO) 1.5 % (20.5-51.5); MEAN CORPUSCULAR HGB CONC 34 g/dL (32.5-36.3); MEAN CORPUSCULAR VOLUME 109.7 fL (73.0-96.2); MONOCYTES # (AUTO) 1.3 K/uL (2.0-10.0); MONOCYTES % (AUTO) 6.4 % (0.0-11.0); NEUTROPHILS # (AUTO) 19.1 K/uL (1.8-8.9); NEUTROPHILS % (AUTO) 91.6 % (38.5-71.5); PLATELET COUNT (AUTO) 200 K/uL (152-348); RED BLOOD CELL COUNT(AUTO) 3.46 MIL/uL (4.06-5.63); WHITE BLOOD COUNT (AUTO) 20.8 K/uL (3.6-10.2)
[2018-08-19 06:47] LABS: CARBON DIOXIDE 18 mmol/L (21-32); CHLORIDE 104 mmol/L (98-107); CREATININE 1.6 mg/dL (0.6-1.3); GLUCOSE 129 mg/dL (74-106); POTASSIUM 4.2 mmol/L (3.5-5.1); UREA NITROGEN, BLOOD 29 mg/dL (7-18)
[2018-08-19] MEDS: MEROPENEM 0.5 G in IV NORMAL SALINE 50 ML IV SCH ×2 (08:30→20:27)
[2018-08-19] MEDS: IV NS 1000 ML 1,000 ML IV PRN (09:00)
[2018-08-19 09:22] LABS: *BILIRUBIN,URIN NEGATIVE (NEGATIVE); *BLOOD, URINE NEGATIVE (NEGATIVE); *CLARITY,URINE CLEAR (CLEAR); *COLOR,URINE YELLOW (YELLOW); *KETONES,URINE NEGATIVE (NEGATIVE); *PROTEIN,URINE NEGATIVE (NEGATIVE); LEUKOCYTE ESTERASE ,URINE NEGATIVE (NEGATIVE); NITRITE, URINE NEGATIVE (NEGATIVE); PH,URINE 5.5 (5.0-8.0); UGLUCOSE NEGATIVE (NEGATIVE)
[2018-08-19] MEDS: FOLIC ACID 1 MG TABLET PO SCH (09:23)
[2018-08-19] MEDS: SPIRONOLACTONE 25 MG TABLET PO SCH (09:23)
[2018-08-19] MEDS: ASPIRIN 81 MG TAB.CHEW PO SCH (09:23)
[2018-08-19] MEDS: MULTIVIT, IRON, MIN NO. 8, FA TABLET PO SCH (09:23)
[2018-08-19] MEDS: FUROSEMIDE 20 MG TABLET PO SCH (09:23)
[2018-08-19] MEDS: Z GUARD REMEDY PASTE 57 GM TUBE TOP SCH ×2 (09:24→20:27)
[2018-08-19 10:00] LABS: BACTERIA,URINE FEW /HPF (NONE SEEN); RBC,URINE 0-3 /HPF (0-3); SQUAMOUS EPITHELIAL CELL,UR MODERATE /HPF (NONE SEEN); WBC,URINE 0-3 /HPF (0-3)
[2018-08-19 10:01] LABS: MUCUS,URINE FEW /LPF (0-FEW)
[2018-08-19] MEDS ORDERED: VANCOMYCIN IV 1,250 MG in IV DEXTROSE 5% 500 ML IV ONE (11:00)
[2018-08-19 11:45] VITALS: BP 81/30
[2018-08-19] MEDS: ALBUMIN HUMAN 25% 25 GM in PREMIXED 1 EACH IV SCH ×3 (13:21→23:27)
[2018-08-19 15:12] VITALS: BP 106/52
[2018-08-19 20:05] VITALS: BP 108/47
[2018-08-19] MEDS: TAMSULOSIN HCL 0.4 MG CAP.SR.24H PO SCH (20:27)
[2018-08-19] MEDS: FERROUS SULFATE 325 MG TABEC PO SCH (20:27)
[2018-08-19 23:51] VITALS: BP 105/57
[2018-08-20 04:00] VITALS: BP 104/50
[2018-08-20] MEDS: ALBUMIN HUMAN 25% 25 GM in PREMIXED 1 EACH IV SCH (05:13)
[2018-08-20] MEDS: PANTOPRAZOLE SODIUM 40 MG TABLET.DR PO SCH (06:18)
[2018-08-20] MEDS: MEROPENEM 0.5 G in IV NORMAL SALINE 50 ML IV SCH ×2 (08:08→20:08)
[2018-08-20] MEDS: ASPIRIN 81 MG TAB.CHEW PO SCH (08:37)
[2018-08-20] MEDS: FUROSEMIDE 20 MG TABLET PO SCH (08:37)
[2018-08-20] MEDS: FOLIC ACID 1 MG TABLET PO SCH (08:37)
[2018-08-20] MEDS: FERROUS SULFATE 325 MG TABEC PO SCH ×2 (08:37→20:19)
[2018-08-20] MEDS: MULTIVIT, IRON, MIN NO. 8, FA TABLET PO SCH (08:37)
[2018-08-20] MEDS: SPIRONOLACTONE 25 MG TABLET PO SCH (08:37)
[2018-08-20 08:40] LABS: BASOPHILS # (AUTO) 0.1 K/uL (0.0-8.0); HEMATOCRIT 33.1 % (36.7-47.1); HEMOGLOBIN 11.2 g/dL (12.5-16.3); LYMPHOCYTES # (AUTO) 0.4 K/uL (20.0-40.0); MEAN CORPUSCULAR HGB CONC 34 g/dL (32.5-36.3); MEAN CORPUSCULAR VOLUME 109.5 fL (73.0-96.2); RED BLOOD CELL COUNT(AUTO) 3.03 MIL/uL (4.06-5.63)
[2018-08-20 08:45] LABS: BASOPHILS % (AUTO) 0.3 % (0.0-2.0); EOSINOPHILS % (AUTO) 0.1 % (0.0-7.0); LYMPHOCYTES % (AUTO) 2.3 % (20.5-51.5); MONOCYTES % (AUTO) 5.1 % (0.0-11.0); NEUTROPHILS # (AUTO) 17.6 K/uL (1.8-8.9); NEUTROPHILS % (AUTO) 92.2 % (38.5-71.5); PLATELET COUNT (AUTO) 152 K/uL (152-348); WHITE BLOOD COUNT (AUTO) 19.1 K/uL (3.6-10.2)
[2018-08-20 08:59] LABS: ALANINE AMINOTRANSFERASE 13 U/L (16-63); ALKALINE PHOSPHATASE 63 U/L (50-136); ASPARTATE AMINOTRANSFERASE 18 U/L (15-37); BILIRUBIN,TOTAL 1.9 mg/dL (0.2-1.0); CARBON DIOXIDE 19 mmol/L (21-32); CHLORIDE 104 mmol/L (98-107); CREATININE 1.3 mg/dL (0.6-1.3); GLUCOSE 102 mg/dL (74-106); PHOSPHOROUS 3.9 mg/dL (2.5-4.9); POTASSIUM 3.9 mmol/L (3.5-5.1); TOTAL PROTEIN, SERUM 5.5 g/dL (6.4-8.2); UREA NITROGEN, BLOOD 34 mg/dL (7-18); VANCOMYCIN,RANDOM 19.6 ug/mL (18.0-26.0)
[2018-08-20 09:00] LABS: BAND % (MANUAL) 6 % (0-10); LYMPHOCYTES % (MANUAL) 3 % (20-40); METAMYELOCYTES % 2 % (0-1); MONOCYTES % (MANUAL) 4 % (2-10); NEUTROPHILS % (MANUAL) 85 % (42-75)
[2018-08-20] MEDS: Z GUARD REMEDY PASTE 57 GM TUBE TOP SCH ×2 (09:00→20:20)
[2018-08-20 11:31] VITALS: BP 111/57
[2018-08-20] MEDS: IV NS 1000 ML 1,000 ML IV PRN (13:44)
[2018-08-20] MEDS ORDERED: VANCOMYCIN IV 1,250 MG in IV DEXTROSE 5% 500 ML IV ONE (15:00)
[2018-08-20 15:41] VITALS: BP 99/60
[2018-08-20 20:00] VITALS: BP 103/42
[2018-08-20] MEDS: TAMSULOSIN HCL 0.4 MG CAP.SR.24H PO SCH (20:19)
[2018-08-21] VITALS: BP_SYST 114; BP_SYST 118; BP_DIAS 52; BP_DIAS 62
[2018-08-21 04:00] VITALS: BP 118/62
[2018-08-21] MEDS: IV NS 1000 ML 1,000 ML IV PRN (05:34)
[2018-08-21] MEDS: PANTOPRAZOLE SODIUM 40 MG TABLET.DR PO SCH (06:04)
[2018-08-21 06:37] LABS: CARBON DIOXIDE 20 mmol/L (21-32); CHLORIDE 105 mmol/L (98-107); CREATININE 1.3 mg/dL (0.6-1.3); GLUCOSE 104 mg/dL (74-106); POTASSIUM 3.9 mmol/L (3.5-5.1); UREA NITROGEN, BLOOD 30 mg/dL (7-18)
[2018-08-21 06:48] LABS: BASOPHILS % (AUTO) 0.2 % (0.0-2.0); EOSINOPHILS # (AUTO) 0.1 K/uL (0.0-0.7); EOSINOPHILS % (AUTO) 0.7 % (0.0-7.0); HEMATOCRIT 33.7 % (36.7-47.1); HEMOGLOBIN 11.6 g/dL (12.5-16.3); LYMPHOCYTES # (AUTO) 0.4 K/uL (20.0-40.0); LYMPHOCYTES % (AUTO) 2.2 % (20.5-51.5); MEAN CORPUSCULAR HEMOGLOBIN 37.4 uug (23.8-33.4); MEAN CORPUSCULAR HGB CONC 34 g/dL (32.5-36.3); MONOCYTES # (AUTO) 1.2 K/uL (2.0-10.0); MONOCYTES % (AUTO) 6.3 % (0.0-11.0); NEUTROPHILS # (AUTO) 17.8 K/uL (1.8-8.9); NEUTROPHILS % (AUTO) 90.6 % (38.5-71.5); PLATELET COUNT (AUTO) 155 K/uL (152-348); RED BLOOD CELL COUNT(AUTO) 3.09 MIL/uL (4.06-5.63); WHITE BLOOD COUNT (AUTO) 19.7 K/uL (3.6-10.2)
[2018-08-21] MEDS: MEROPENEM 0.5 G in IV NORMAL SALINE 50 ML IV SCH (08:20)
[2018-08-21] MEDS: ASPIRIN 81 MG TAB.CHEW PO SCH (08:36)
[2018-08-21] MEDS: FOLIC ACID 1 MG TABLET PO SCH (08:36)
[2018-08-21] MEDS: MULTIVIT, IRON, MIN NO. 8, FA TABLET PO SCH (08:36)
[2018-08-21] MEDS: FERROUS SULFATE 325 MG TABEC PO SCH ×2 (08:36→20:18)
[2018-08-21] MEDS: FUROSEMIDE 20 MG TABLET PO SCH (08:41)
[2018-08-21] MEDS: SPIRONOLACTONE 25 MG TABLET PO SCH (08:41)
[2018-08-21] MEDS: Z GUARD REMEDY PASTE 57 GM TUBE TOP SCH ×2 (08:43→20:18)
[2018-08-21 11:06] VITALS: BP 104/49
[2018-08-21] MEDS ORDERED: FLUCONAZOLE 200 MG TABLET PO ONE (15:15)
[2018-08-21 15:22] VITALS: BP 111/63
[2018-08-21] MEDS ORDERED: CEFTRIAXONE 1 G VIAL IM SCH (15:30)
[2018-08-21] MEDS: MICAFUNGIN SODIUM 100 MG in IV NORMAL SALINE 100 ML IV SCH (16:30)
[2018-08-21] MEDS: CEFTRIAXONE 1 G in IV DEXTROSE 5% 50 ML IV SCH (17:39)
[2018-08-21 20:00] VITALS: BP 107/52
[2018-08-21] MEDS: TAMSULOSIN HCL 0.4 MG CAP.SR.24H PO SCH (20:18)
[2018-08-22 03:09] VITALS: BP 106/53
[2018-08-22] MEDS: PANTOPRAZOLE SODIUM 40 MG TABLET.DR PO SCH (06:03)
[2018-08-22] MEDS: IV NS 1000 ML 1,000 ML IV PRN ×2 (06:03→16:45)
[2018-08-22 06:57] LABS: BASOPHILS % (AUTO) 0.2 % (0.0-2.0); EOSINOPHILS # (AUTO) 0.2 K/uL (0.0-0.7); EOSINOPHILS % (AUTO) 1.3 % (0.0-7.0); HEMATOCRIT 33.4 % (36.7-47.1); HEMOGLOBIN 11.3 g/dL (12.5-16.3); LYMPHOCYTES # (AUTO) 0.7 K/uL (20.0-40.0); LYMPHOCYTES % (AUTO) 4.3 % (20.5-51.5); MEAN CORPUSCULAR HEMOGLOBIN 36.7 uug (23.8-33.4); MEAN CORPUSCULAR HGB CONC 34 g/dL (32.5-36.3); MEAN CORPUSCULAR VOLUME 108.6 fL (73.0-96.2); MONOCYTES % (AUTO) 6.2 % (0.0-11.0); NEUTROPHILS # (AUTO) 14.6 K/uL (1.8-8.9); PLATELET COUNT (AUTO) 152 K/uL (152-348); RED BLOOD CELL COUNT(AUTO) 3.08 MIL/uL (4.06-5.63); WHITE BLOOD COUNT (AUTO) 16.6 K/uL (3.6-10.2)
[2018-08-22 07:12] LABS: CARBON DIOXIDE 22 mmol/L (21-32); CHLORIDE 107 mmol/L (98-107); CREATININE 1.3 mg/dL (0.6-1.3); GLUCOSE 130 mg/dL (74-106); POTASSIUM 3.8 mmol/L (3.5-5.1); UREA NITROGEN, BLOOD 29 mg/dL (7-18)
[2018-08-22] MEDS: FERROUS SULFATE 325 MG TABEC PO SCH ×2 (09:34→20:07)
[2018-08-22] MEDS: SPIRONOLACTONE 25 MG TABLET PO SCH (09:34)
[2018-08-22] MEDS: MULTIVIT, IRON, MIN NO. 8, FA TABLET PO SCH (09:34)
[2018-08-22] MEDS: FOLIC ACID 1 MG TABLET PO SCH (09:34)
[2018-08-22] MEDS: FUROSEMIDE 20 MG TABLET PO SCH (09:34)
[2018-08-22] MEDS: Z GUARD REMEDY PASTE 57 GM TUBE TOP SCH ×2 (09:35→20:07)
[2018-08-22] MEDS: ASPIRIN 81 MG TAB.CHEW PO SCH (09:36)
[2018-08-22 11:37] VITALS: BP 95/45
[2018-08-22 14:50] LABS: BILIRUBIN,TOTAL 1.8 mg/dL (0.2-1.0)
[2018-08-22] MEDS ORDERED: diphenhydrAMINE 50 MG/1 ML VIAL IV ONE (15:15)
[2018-08-22 16:00] VITALS: BP 106/46
[2018-08-22] MEDS: CEFTRIAXONE 1 G in IV DEXTROSE 5% 50 ML IV SCH (16:41)
[2018-08-22] MEDS: MICAFUNGIN SODIUM 100 MG in IV NORMAL SALINE 100 ML IV SCH (16:45)
[2018-08-22] MEDS ORDERED: ALBUMIN HUMAN 25% 100 ML IV ONE (17:00)
[2018-08-22] MEDS ORDERED: TPN/PPN PER PHARMACY IV PRN (17:00)
[2018-08-22 19:15] VITALS: BP 99/54
[2018-08-22] MEDS: TAMSULOSIN HCL 0.4 MG CAP.SR.24H PO SCH (20:07)
[2018-08-23 03:21] VITALS: BP 113/56
[2018-08-23] MEDS: IV NS 1000 ML 1,000 ML IV PRN (03:31)
[2018-08-23] MEDS: PANTOPRAZOLE SODIUM 40 MG VIAL IV SCH (06:18)
[2018-08-23 07:43] LABS: BASOPHILS # (AUTO) 0.3 K/uL (0.0-8.0); BASOPHILS % (AUTO) 1.7 % (0.0-2.0); EOSINOPHILS # (AUTO) 0.2 K/uL (0.0-0.7); EOSINOPHILS % (AUTO) 1.6 % (0.0-7.0); HEMATOCRIT 32.4 % (36.7-47.1); HEMOGLOBIN 11.2 g/dL (12.5-16.3); LYMPHOCYTES # (AUTO) 0.6 K/uL (20.0-40.0); LYMPHOCYTES % (AUTO) 3.8 % (20.5-51.5); MEAN CORPUSCULAR HEMOGLOBIN 36.9 uug (23.8-33.4); MEAN CORPUSCULAR HGB CONC 34 g/dL (32.5-36.3); MEAN CORPUSCULAR VOLUME 107.2 fL (73.0-96.2); MONOCYTES # (AUTO) 1.4 K/uL (2.0-10.0); MONOCYTES % (AUTO) 9.3 % (0.0-11.0); NEUTROPHILS # (AUTO) 12.4 K/uL (1.8-8.9); NEUTROPHILS % (AUTO) 83.6 % (38.5-71.5); PLATELET COUNT (AUTO) 128 K/uL (152-348); RED BLOOD CELL COUNT(AUTO) 3.03 MIL/uL (4.06-5.63); WHITE BLOOD COUNT (AUTO) 14.8 K/uL (3.6-10.2)
[2018-08-23 08:02] LABS: CARBON DIOXIDE 21 mmol/L (21-32); CHLORIDE 110 mmol/L (98-107); CREATININE 1.2 mg/dL (0.6-1.3); GLUCOSE 103 mg/dL (74-106); MAGNESIUM 1.9 mg/dL (1.8-2.4); PHOSPHOROUS 3.6 mg/dL (2.5-4.9); POTASSIUM 3.8 mmol/L (3.5-5.1); UREA NITROGEN, BLOOD 26 mg/dL (7-18)
[2018-08-23 08:19] LABS: BAND % (MANUAL) 5 % (0-10); EOSINOPHILS % (MANUAL) 1 % (0-8); LYMPHOCYTES % (MANUAL) 4 % (20-40)
[2018-08-23 08:20] LABS: MONOCYTES % (MANUAL) 8 % (2-10); NEUTROPHILS % (MANUAL) 82 % (42-75)
[2018-08-23] MEDS: FERROUS SULFATE 325 MG TABEC PO SCH ×2 (09:37→20:10)
[2018-08-23] MEDS: ASPIRIN 81 MG TAB.CHEW PO SCH (09:37)
[2018-08-23] MEDS: Z GUARD REMEDY PASTE 57 GM TUBE TOP SCH ×2 (09:37→20:11)
[2018-08-23] MEDS: SPIRONOLACTONE 25 MG TABLET PO SCH (09:37)
[2018-08-23] MEDS: FOLIC ACID 1 MG TABLET PO SCH (09:37)
[2018-08-23] MEDS: MULTIVIT, IRON, MIN NO. 8, FA TABLET PO SCH (09:37)
[2018-08-23] MEDS: FUROSEMIDE 20 MG TABLET PO SCH (09:37)
[2018-08-23 11:30] VITALS: BP 94/60
[2018-08-23 15:40] VITALS: BP 114/60
[2018-08-23] MEDS: MICAFUNGIN SODIUM 100 MG in IV NORMAL SALINE 100 ML IV SCH (15:56)
[2018-08-23] MEDS: CEFTRIAXONE 1 G in IV DEXTROSE 5% 50 ML IV SCH (17:35)
[2018-08-23 19:14] VITALS: BP 109/49
[2018-08-23] MEDS: TAMSULOSIN HCL 0.4 MG CAP.SR.24H PO SCH (20:10)
[2018-08-24 03:31] VITALS: BP 104/50
[2018-08-24] MEDS: PANTOPRAZOLE SODIUM 40 MG VIAL IV SCH (06:06)
[2018-08-24 06:40] LABS: BASOPHILS # (AUTO) 0.1 K/uL (0.0-8.0); BASOPHILS % (AUTO) 0.6 % (0.0-2.0); EOSINOPHILS # (AUTO) 0.2 K/uL (0.0-0.7); EOSINOPHILS % (AUTO) 1.4 % (0.0-7.0); HEMATOCRIT 32.7 % (36.7-47.1); HEMOGLOBIN 11.1 g/dL (12.5-16.3); LYMPHOCYTES # (AUTO) 0.7 K/uL (20.0-40.0); LYMPHOCYTES % (AUTO) 4.5 % (20.5-51.5); MEAN CORPUSCULAR HEMOGLOBIN 36.5 uug (23.8-33.4); MEAN CORPUSCULAR HGB CONC 34 g/dL (32.5-36.3); MEAN CORPUSCULAR VOLUME 107.9 fL (73.0-96.2); MONOCYTES # (AUTO) 1.4 K/uL (2.0-10.0); NEUTROPHILS # (AUTO) 12.8 K/uL (1.8-8.9); NEUTROPHILS % (AUTO) 84.5 % (38.5-71.5); PLATELET COUNT (AUTO) 109 K/uL (152-348); RED BLOOD CELL COUNT(AUTO) 3.03 MIL/uL (4.06-5.63); WHITE BLOOD COUNT (AUTO) 15.2 K/uL (3.6-10.2)
[2018-08-24 06:42] LABS: CARBON DIOXIDE 23 mmol/L (21-32); CHLORIDE 112 mmol/L (98-107); CREATININE 1.1 mg/dL (0.6-1.3); GLUCOSE 114 mg/dL (74-106); MAGNESIUM 1.9 mg/dL (1.8-2.4); PHOSPHOROUS 3.7 mg/dL (2.5-4.9); POTASSIUM 3.7 mmol/L (3.5-5.1); UREA NITROGEN, BLOOD 24 mg/dL (7-18)
[2018-08-24 07:31] LABS: BAND % (MANUAL) 6 % (0-10); NEUTROPHILS % (MANUAL) 80 % (42-75)
[2018-08-24 07:34] LABS: EOSINOPHILS % (MANUAL) 1 % (0-8); MONOCYTES % (MANUAL) 7 % (2-10)
[2018-08-24 07:35] LABS: LYMPHOCYTES % (MANUAL) 6 % (20-40)
[2018-08-24] MEDS: FERROUS SULFATE 325 MG TABEC PO SCH ×2 (08:16→20:11)
[2018-08-24] MEDS: MULTIVIT, IRON, MIN NO. 8, FA TABLET PO SCH (08:16)
[2018-08-24] MEDS: SPIRONOLACTONE 25 MG TABLET PO SCH (08:16)
[2018-08-24] MEDS: FOLIC ACID 1 MG TABLET PO SCH (08:16)
[2018-08-24] MEDS: ASPIRIN 81 MG TAB.CHEW PO SCH (08:16)
[2018-08-24] MEDS: Z GUARD REMEDY PASTE 57 GM TUBE TOP SCH ×2 (08:17→20:17)
[2018-08-24] MEDS: FUROSEMIDE 20 MG TABLET PO SCH (08:17)
[2018-08-24 08:27] VITALS: BP 102/53
[2018-08-24 11:10] VITALS: BP 104/53
[2018-08-24 15:33] VITALS: BP 96/54
[2018-08-24] MEDS: MICAFUNGIN SODIUM 100 MG in IV NORMAL SALINE 100 ML IV SCH (16:29)
[2018-08-24] MEDS: IV NS 1000 ML 1,000 ML IV PRN (16:30)
[2018-08-24] MEDS: CEFTRIAXONE 1 G in IV DEXTROSE 5% 50 ML IV SCH (17:47)
[2018-08-24] MEDS: TAMSULOSIN HCL 0.4 MG CAP.SR.24H PO SCH (20:11)
[2018-08-24 20:14] VITALS: BP 105/54
[2018-08-24] MEDS: CHLORHEXIDINE GLUCONATE 15 ML MOUTHWASH MM SCH (20:21)
[2018-08-25 04:01] VITALS: BP 101/58
[2018-08-25] MEDS: PANTOPRAZOLE SODIUM 40 MG VIAL IV SCH (06:34)
[2018-08-25 06:47] LABS: BASOPHILS # (AUTO) 0.1 K/uL (0.0-8.0); BASOPHILS % (AUTO) 0.6 % (0.0-2.0); EOSINOPHILS # (AUTO) 0.2 K/uL (0.0-0.7); EOSINOPHILS % (AUTO) 1.1 % (0.0-7.0); HEMATOCRIT 32.6 % (36.7-47.1); LYMPHOCYTES # (AUTO) 0.7 K/uL (20.0-40.0); LYMPHOCYTES % (AUTO) 4.5 % (20.5-51.5); MEAN CORPUSCULAR HEMOGLOBIN 36.7 uug (23.8-33.4); MEAN CORPUSCULAR HGB CONC 34 g/dL (32.5-36.3); MEAN CORPUSCULAR VOLUME 108.2 fL (73.0-96.2); MONOCYTES # (AUTO) 1.4 K/uL (2.0-10.0); MONOCYTES % (AUTO) 8.7 % (0.0-11.0); NEUTROPHILS # (AUTO) 13.3 K/uL (1.8-8.9); NEUTROPHILS % (AUTO) 85.1 % (38.5-71.5); PLATELET COUNT (AUTO) 105 K/uL (152-348); RED BLOOD CELL COUNT(AUTO) 3.01 MIL/uL (4.06-5.63); WHITE BLOOD COUNT (AUTO) 15.6 K/uL (3.6-10.2)
[2018-08-25 06:55] LABS: CARBON DIOXIDE 22 mmol/L (21-32); CHLORIDE 112 mmol/L (98-107); CREATININE 1.1 mg/dL (0.6-1.3); GLUCOSE 140 mg/dL (74-106); PHOSPHOROUS 3.4 mg/dL (2.5-4.9); POTASSIUM 3.9 mmol/L (3.5-5.1); UREA NITROGEN, BLOOD 25 mg/dL (7-18)
[2018-08-25 07:20] LABS: BAND % (MANUAL) 1 % (0-10); LYMPHOCYTES % (MANUAL) 5 % (20-40); NEUTROPHILS % (MANUAL) 85 % (42-75)
[2018-08-25 07:21] LABS: EOSINOPHILS % (MANUAL) 1 % (0-8); MONOCYTES % (MANUAL) 8 % (2-10)
[2018-08-25] MEDS: CHLORHEXIDINE GLUCONATE 15 ML MOUTHWASH MM SCH ×2 (08:29→21:00)
[2018-08-25] MEDS: FOLIC ACID 1 MG TABLET PO SCH (08:29)
[2018-08-25] MEDS: MULTIVIT, IRON, MIN NO. 8, FA TABLET PO SCH (08:30)
[2018-08-25] MEDS: FERROUS SULFATE 325 MG TABEC PO SCH ×2 (08:30→21:23)
[2018-08-25] MEDS: SPIRONOLACTONE 25 MG TABLET PO SCH (08:30)
[2018-08-25] MEDS: ASPIRIN 81 MG TAB.CHEW PO SCH (08:30)
[2018-08-25] MEDS: Z GUARD REMEDY PASTE 57 GM TUBE TOP SCH ×2 (08:30→21:22)
[2018-08-25] MEDS: FUROSEMIDE 20 MG TABLET PO SCH (08:30)
[2018-08-25 11:01] VITALS: BP 110/72
[2018-08-25] MEDS: IV NS 1000 ML 1,000 ML IV PRN (15:04)
[2018-08-25 15:06] VITALS: BP 108/58
[2018-08-25] MEDS: MICAFUNGIN SODIUM 100 MG in IV NORMAL SALINE 100 ML IV SCH (16:16)
[2018-08-25] MEDS: CEFTRIAXONE 1 G in IV DEXTROSE 5% 50 ML IV SCH (17:42)
[2018-08-25 20:00] VITALS: BP 107/53
[2018-08-25] MEDS: TAMSULOSIN HCL 0.4 MG CAP.SR.24H PO SCH (21:23)
[2018-08-26 04:00] VITALS: BP 112/56
[2018-08-26] MEDS: PANTOPRAZOLE SODIUM 40 MG VIAL IV SCH (06:02)
[2018-08-26 06:22] LABS: CARBON DIOXIDE 24 mmol/L (21-32); CHLORIDE 111 mmol/L (98-107); GLUCOSE 131 mg/dL (74-106); MAGNESIUM 1.9 mg/dL (1.8-2.4); PHOSPHOROUS 3.1 mg/dL (2.5-4.9); POTASSIUM 3.6 mmol/L (3.5-5.1); UREA NITROGEN, BLOOD 21 mg/dL (7-18)
[2018-08-26 06:37] LABS: BASOPHILS # (AUTO) 0.1 K/uL (0.0-8.0); BASOPHILS % (AUTO) 0.4 % (0.0-2.0); EOSINOPHILS # (AUTO) 0.2 K/uL (0.0-0.7); EOSINOPHILS % (AUTO) 1.5 % (0.0-7.0); HEMATOCRIT 33.3 % (36.7-47.1); HEMOGLOBIN 11.2 g/dL (12.5-16.3); LYMPHOCYTES # (AUTO) 0.6 K/uL (20.0-40.0); LYMPHOCYTES % (AUTO) 4.6 % (20.5-51.5); MEAN CORPUSCULAR HEMOGLOBIN 37.1 uug (23.8-33.4); MEAN CORPUSCULAR HGB CONC 34 g/dL (32.5-36.3); MEAN CORPUSCULAR VOLUME 109.8 fL (73.0-96.2); MONOCYTES # (AUTO) 1.1 K/uL (2.0-10.0); NEUTROPHILS # (AUTO) 12.2 K/uL (1.8-8.9); NEUTROPHILS % (AUTO) 85.5 % (38.5-71.5); PLATELET COUNT (AUTO) 91 K/uL (152-348); RED BLOOD CELL COUNT(AUTO) 3.03 MIL/uL (4.06-5.63); WHITE BLOOD COUNT (AUTO) 14.3 K/uL (3.6-10.2)
[2018-08-26 07:18] LABS: BAND % (MANUAL) 1 % (0-10); NEUTROPHILS % (MANUAL) 84 % (42-75)
[2018-08-26 07:19] LABS: EOSINOPHILS % (MANUAL) 2 % (0-8); LYMPHOCYTES % (MANUAL) 5 % (20-40); MONOCYTES % (MANUAL) 8 % (2-10)
[2018-08-26 08:30] VITALS: BP 93/58
[2018-08-26] MEDS: FUROSEMIDE 20 MG TABLET PO SCH (08:46)
[2018-08-26] MEDS: FOLIC ACID 1 MG TABLET PO SCH (08:46)
[2018-08-26] MEDS: SPIRONOLACTONE 25 MG TABLET PO SCH (08:46)
[2018-08-26] MEDS: Z GUARD REMEDY PASTE 57 GM TUBE TOP SCH (08:47)
[2018-08-26] MEDS: ASPIRIN 81 MG TAB.CHEW PO SCH (08:48)
[2018-08-26] MEDS: CHLORHEXIDINE GLUCONATE 15 ML MOUTHWASH MM SCH (08:50)
[2018-08-26] MEDS ORDERED: FERROUS SULFATE 300 MG/5 ML LIQUID UDC PO SCH ×2 (09:00)
[2018-08-26 11:05] VITALS: BP 96/43
[2018-08-26 11:40] VITALS: BP 106/52
[2018-08-26] MEDS ORDERED: CEFT1VIA15 IV (11:43)
[2018-08-26] MEDS ORDERED: MENT71OI TOP (11:43)
[2018-08-26] MEDS ORDERED: FERR300L PO (11:43)
[2018-08-26] MEDS ORDERED: CHLO473M2 MM (11:43)
[2018-08-26] MEDS ORDERED: IV NS 1000 ML 500 ML IV ONE (11:45)
[2018-08-26] MEDS ORDERED: IV NORMAL SALINE 500 ML IV SCH (12:00)
[2018-08-26] MEDS: IV NS 1000 ML 1,000 ML IV PRN (13:42)
[2018-08-26 16:00] VITALS: BP 118/61
[2018-08-26] MEDS ORDERED: MEGESTROL ACETATE 20 MG TABLET PO SCH (17:00)
== END 2018-08-26 16:40 | DRG 871 ==
LOC: ER 17:03 → CCU 18:39 → TELE 08-18 15:23 → MED 08-21 17:05
PROVIDERS: ADMIT Internal Medicine; ATTEND Nurse Practitioner Acute Care
PROC: 0W9G3ZX Drainage of Peritoneal Cavity, Percutaneous Approach, Diagnostic (ICD-10-PCS; principal; 2018-08-18)
PROC: 02HV33Z Insertion of Infusion Device into Superior Vena Cava, Percutaneous Approach (ICD-10-PCS; 2018-08-22)
PROC: 05HY33Z Insertion of Infusion Device into Upper Vein, Percutaneous Approach (ICD-10-PCS; 2018-08-22)
DX: A41.51 Sepsis due to Escherichia coli [E. coli] (principal); K65.2 Spontaneous bacterial peritonitis; G93.41 Metabolic encephalopathy; N17.0 Acute kidney failure with tubular necrosis; E43 Unspecified severe protein-calorie malnutrition; J15.9 Unspecified bacterial pneumonia; B37.49 Other urogenital candidiasis; D68.4 Acquired coagulation factor deficiency; E87.2 Acidosis; E87.1 Hypo-osmolality and hyponatremia; R65.20 Severe sepsis without septic shock; Z68.28 Body mass index [BMI] 28.0-28.9, adult; F17.210 Nicotine dependence, cigarettes, uncomplicated; K70.31 Alcoholic cirrhosis of liver with ascites; F10.20 Alcohol dependence, uncomplicated; Y90.9 Presence of alcohol in blood, level not specified; Z79.82 Long term (current) use of aspirin; Z91.010 Allergy to peanuts; D69.59 Other secondary thrombocytopenia; H40.9 Unspecified glaucoma; Z99.3 Dependence on wheelchair; Z98.42 Cataract extraction status, left eye; Z98.41 Cataract extraction status, right eye; I87.2 Venous insufficiency (chronic) (peripheral); I89.0 Lymphedema, not elsewhere classified; R26.2 Difficulty in walking, not elsewhere classified; E53.8 Deficiency of other specified B group vitamins; I27.20 Pulmonary hypertension, unspecified; N40.1 Benign prostatic hyperplasia with lower urinary tract symptoms; N39.498 Other specified urinary incontinence; E86.0 Dehydration; F39 Unspecified mood [affective] disorder; K21.9 Gastro-esophageal reflux disease without esophagitis; Z91.19 Patient's noncompliance with other medical treatment and regimen; D75.89 Other specified diseases of blood and blood-forming organs
CPT/HCPCS: 36415; 51798; 70030-TC; 71045; 76700; 83550; 83605; 83735; 84100; 84155; 84443; 85025; 85610; 85730; 86592; 87040; 87070; 87077; 87086; 87205; 92523; 92610; 93005; 94664; 97110; A4663; C1751; C1758; C9113; G0378; J0696; J1200; J2185; J2248; J2543; J3370; J3490; J3590; J7030; J7040; J7050; J7060; P9047